=== PATIENT | male | born 1930 | race Caucasian/White ===

== ENCOUNTER 2016-12-10 06:26 | Outpatient (CLI) | payer MEDICARE ==
[~2016-12-10] VITALS: Ht 180.3 cm; Wt 78.9 kg
[~2016-12-10 06:26] MED LIST: ACHYD1T PO; ASCO500T20 PO; ASPI-875 PO; CIPR-17 PO; DOCU-161 PO; FINA5TAB6 PO; FOLI1TAB6 PO; LECI400C PO; LVT.025T PO; OMEG-12 PO; PARO20TA4 PO; PARO40TA2 PO; PERP1TAB5 PO; PHEN200T27 PO; SIMV20TA3 PO; SIMV40TA4 PO; TMSL.4C PO
== END 2016-12-10 11:48 ==
LOC: PREOP 06:26
PROVIDERS: ATTEND Surgery
DX: Z01.818 Encounter for other preprocedural examination (principal); D64.9 Anemia, unspecified

== ENCOUNTER 2016-12-14 07:49 | Day surgery (SDC) | payer MEDICARE ==
[2016-12-14 07:55] VITALS: BP 137/97
[2016-12-14] MEDS ORDERED: NS IV 1000 ML 1,000 ML IV STA (07:55)
[2016-12-14] MEDS ORDERED: HURRICAINE EXT TUBE (BENZOCAINE) XX PRN (08:00)
[2016-12-14] MEDS ORDERED: NS IV 1000 ML 1,000 ML ONE (08:19)
[2016-12-14] MEDS ORDERED: proPOfol 200 MG/20 ML (DIPRIVAN) VIAL IV ONE (08:39)
[2016-12-14] MEDS ORDERED: fentaNYL INJECTION 100 MCG/2 ML AMP ONE (08:40)
[2016-12-14] MEDS ORDERED: meTOprolol 5 MG/5 ML (LOPRESSOR) VIAL ONE (09:40)
--- NOTE | 2016-12-14 09:41 | Progress Note-Pre Operative ---
Pre-Operative Progress Note H&P Reviewed The H&P was reviewed, patient examined and no changes noted. Date H&P Reviewed: December 14, 2016 Time H&P Reviewed: 09:41 Pre-Operative Diagnosis: anemia, occult positive stool SHARAN FONSECA DO December 14, 2016 9:41 am
--- NOTE | 2016-12-14 10:41 | Discharge Inst-Simple/Standard ---
Discharge Inst-Standard Patient Instructions/Follow Up Plan of Care/Instructions/FU: Follow up with Dr. Alvarez as needed Activity as Tolerated: Yes Discharge Diet: No Restrictions AUSTIN ARAGON APRN December 14, 2016 10:41
--- NOTE | 2016-12-14 10:47 | Progress Note-Post Operative ---
Post-Operative Progess Note Surgeon (s)/Nuclear Reactor Engineer (s) Surgeon SHARAN FONSECA DO Nuclear Reactor Engineer: na Pre-Operative Diagnosis anemia, occult positive stool Post-Operative Diagnosis small hiatal hernia, normal colon Procedure & Operative Findings Date of Procedure 12/14/16 Procedure Performed/Findings egd colonoscopy Anesthesia Type per site surveyor Estimated Blood Loss Estimated blood loss (mL): none Specimens/Packing Specimens Removed none Packing: SHARAN Sher DO December 14, 2016 10:47 am
[2016-12-14 10:50] VITALS: BP 122/76
--- NOTE | 2016-12-14 11:15 | OPERATIVE REPORT ---
DATE OF SERVICE: 12/14/2016 PREOPERATIVE DIAGNOSIS: Anemia, occult positive stool. POSTOPERATIVE DIAGNOSIS: Small hiatal hernia, normal colon. PROCEDURE: EGD and colonoscopy. ANESTHESIA: Per CHIEF DIETITIAN. SURGEON: Raffaele Alvarez DO. ESTIMATED BLOOD LOSS: None. COMPLICATIONS: None. INDICATIONS: The patient is an 86-year-old male who was sent to me due to him being anemic and having occult positive stools. He understands the risks and benefits of procedures and wished to proceed with procedure. Consent was signed in chart. PROCEDURE: The patient was taken to the endoscopy suite, placed in left lateral recumbent position. Timeout was performed. Scope was inserted in mouth, down into esophagus, stomach and into the duodenum without difficulty. There were no polyps, masses or ulcerations within the duodenum. The scope was slowly retracted back into the stomach, where it was further insufflated. There were no polyps, masses or ulcerations in the antrum. Scope was retroflexed noting some small benign appearing gastric polyps. A small hiatal hernia. There is no evidence of any bleeding or inflammation. Scope was returned to its normal position, slowly withdrawn back into the distal esophagus which had normal appearance. There are no polyps, mass or ulcerations. Scope was slowly retracted back until completely removed. Digital rectal exam was performed. There were no palpable pulse, mass, or ulcerations. Scope was inserted into the rectum and advanced all way to the cecum. There are a couple extremely tight turns which were difficult to navigate; however, they were able to be passed and scope was able to be advanced all the way to cecum. Prep was adequate with irrigation and suction. The scope was then slowly retracted back. No polyps, masses or ulcerations within the cecum, ascending, transverse, descending or sigmoid colon. Once in the rectum, scope was also retroflexed noting no other pathology except for some small hemorrhoidal disease. The scope was returned to its normal position, slowly withdrawn until completely removed. The patient tolerated procedure well without any complications and was taken to the recovery room in stable condition. RECOMMENDATIONS: The patient had no evidence of any bleeding source by EGD or colonoscopy. His occult positive stools could have been secondary to the internal hemorrhoidal disease. The patient will continue to follow up with his primary care provider. If he has any problems, he should return to the clinic at that time. Otherwise, follow up on an as needed basis. Job ID: [id number] DocumentID: [id number] Dictated Date: 12/14/2016 10:53:04 Zone Supervisor Firearms Date: 12/14/2016 11:14:34 Dictated By: DO SANJUANITA TORRES
[2016-12-14 11:20] VITALS: BP 130/80
[2016-12-14 11:35] VITALS: BP 130/80
== END 2016-12-14 11:35 | disposition home or self-care (01) ==
LOC: ENDO 07:49
PROVIDERS: ATTEND Surgery
DX: R19.5 Other fecal abnormalities (principal); D64.9 Anemia, unspecified; K44.9 Diaphragmatic hernia without obstruction or gangrene; K64.8 Other hemorrhoids; I48.91 Unspecified atrial fibrillation; E78.5 Hyperlipidemia, unspecified; E03.9 Hypothyroidism, unspecified; Z79.01 Long term (current) use of anticoagulants; Z79.899 Other long term (current) drug therapy

== ENCOUNTER → 2018-11-08 | Outpatient (CLI) | payer MEDICARE ==
--- NOTE | 2018-11-08 10:57 | Diagnostic Imaging Report ---
INDICATION: Dysphasia and globus sensation. The patient ingested effervescent crystals as well as thin and thick barium and imaging of the esophagus was performed. A total of one minute and 52 seconds of fluoroscopy was utilized. The esophagus has a smooth contour. No mass or strictures identified. Occasional tertiary contractions were present. There is a very small hiatal hernia. No gastroesophageal reflux was demonstrated. IMPRESSION: Small hiatal hernia. No other significant abnormality is detected. Dictated by: Dictated on workstation # [id number]
--- NOTE | 2018-11-08 11:59 | Diagnostic Imaging Report ---
CLINICAL INDICATION: Patient with dysphagia. COMPARISONS: None. FINDINGS: THYROID NODULES: None. THYROID GLAND: There is heterogeneity involving the upper portion of the right thyroid gland. Otherwise, the thyroid gland has normal size, shape and echogenicity. The right lobe measures 3.8 cm x 1.2 cm x 1.1 cm, and the left lobe measures 3.3 cm x 1.1 cm x 1.0 cm in their three dimensions. ISTHMUS: The isthmus is unremarkable and measures 3.5 mm in thickness. IMPRESSION: Nonspecific heterogeneity of the upper right thyroid gland region. Otherwise, unremarkable thyroid ultrasound exam. Dictated by: Dictated on workstation # [id number]
== END ==
LOC: RAD 09:25
PROVIDERS: ATTEND Otolaryngology Otolaryngology/Facial Plastic Surgery
DX: K44.9 Diaphragmatic hernia without obstruction or gangrene (principal)
CPT/HCPCS: 74220; 76536

== ENCOUNTER → 2019-04-26 | Outpatient (CLI) | payer MEDICARE ==
[~2019-04-26] MED LIST changes: +CATHETER FLUSH 10 ML SYR IV PRN; +HOLD METFORMIN - RECEIVED CONTRAST 20 ML VIAL IV SCH; +IOHEXOL 350 MG/ML 100 ML (OMNIPAQUE 350) VIAL IV ONE; +NS 100 ML (IVPB) BAG IV ONE
[2019-04-26 11:00] LABS: CREATININE SERUM 1.51 MG/DL (0.60-1.30)
--- NOTE | 2019-04-26 13:59 | Diagnostic Imaging Report ---
PROCEDURE: CT chest without contrast. TECHNIQUE: Multiple contiguous axial images were obtained through the chest without the use of intravenous contrast. Auto Exposure Controls were utilized during the CT exam to meet ALARA standards for radiation dose reduction. 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 FINDINGS: There are no prior CT chest examinations available for comparison. The plain film examination of the chest performed on 02/24/2013 failed to show any sign of an acute abnormality. The heart is mildly enlarged and there are extensive coronary artery calcifications evident. 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 The aorta measures 3.9 x 4.3 cm. The descending thoracic aorta is unremarkable. The evaluation for mediastinal or hilar adenopathy is limited as intravenous contrast was not administered. However, there does not appear to be any significant hilar adenopathy that would suggest sarcoidosis. The lungs are also generally clear. There is mild pleural thickening along the posterior aspect of each lung base and there is a small amount of chronic atelectasis/scar formation in each lower lobe. There is no evidence for pneumonia, failure, or pleural effusion, however. The thyroid gland is unremarkable. The sections through the upper abdomen fail to show any sign of an acute abnormality. There does appear to be a fair amount of fecal material throughout the visualized colon. The bone windows are unremarkable for fracture or for destructive lesion. IMPRESSION: 1. There is no evidence for an acute cardiopulmonary abnormality. 2. There is coronary artery disease and cardiomegaly. There is also mild aneurysmal dilatation of the ascending aorta. 3. There is no obvious hilar adenopathy or parenchymal lung abnormality to suggest sarcoidosis. Dictated by: Dictated on workstation # [id number]
== END ==
LOC: RAD FS 10:12
PROVIDERS: ATTEND Family Medicine
DX: I25.10 Atherosclerotic heart disease of native coronary artery without angina pectoris (principal); I51.7 Cardiomegaly; I71.9 Aortic aneurysm of unspecified site, without rupture; D86.3 Sarcoidosis of skin
CPT/HCPCS: 36415; 71250; 82565; 84520

== ENCOUNTER → 2019-08-03 | Outpatient (CLI) | payer MEDICARE ==
[~2019-08-03] MED LIST changes: -CATHETER FLUSH 10 ML SYR IV PRN; -HOLD METFORMIN - RECEIVED CONTRAST 20 ML VIAL IV SCH; -IOHEXOL 350 MG/ML 100 ML (OMNIPAQUE 350) VIAL IV ONE; -NS 100 ML (IVPB) BAG IV ONE
== END ==
LOC: CARD 10:52
PROVIDERS: ATTEND Internal Medicine Cardiovascular Disease
DX: I08.3 Combined rheumatic disorders of mitral, aortic and tricuspid valves (principal); I11.9 Hypertensive heart disease without heart failure; E78.2 Mixed hyperlipidemia; I48.0 Paroxysmal atrial fibrillation; R00.2 Palpitations
CPT/HCPCS: 93306

== ENCOUNTER 2019-09-20 11:54 | Emergency (ER) | payer MEDICARE ==
[~2019-09-20] VITALS: Ht 180 cm; Wt 70.0 kg
--- NOTE | 2019-09-20 12:00 | ED Upper Extremity ---
General Chief Complaint: Laceration Stated Complaint: LT HAND LAC Source: patient History of Present Illness Date Seen by Provider: Sep 20, 2019 Time Seen by Provider: 12:00 Initial Comments 89-year-old male presenting with complaints of chainsaw injury to his left hand. He was trying to use chainsaw on a stump and lost control. He had his fingers get cut by the chainsaw. He is unsure of his last tetanus shot. He denies any numbness or tingling in his fingers. He is able to move them normally. He does take a blood thinner. Bleeding is currently controlled on arrival to the ED. Allergies and Home Medications Allergies Coded Allergies: ciprofloxacin (Verified Allergy, Intermediate, 09/20/19) DELIRIUM Penicillins (Verified Allergy, Unknown, RASH, 12/10/16) dronedarone (Verified Allergy, Unknown, 09/20/19) Home Medications Ascorbic Acid 500 Mg Tablet, 500 MG PO DAILY, (Reported) Aspirin 81 Mg Tablet.dr, 81 MG PO MON, WED, TUE, (Reported) Cephalexin 500 Mg Tablet, 500 MG PO TID Prescribed by: RICHARD MCCOLLUM on 09/20/19 1430 Docusate Sodium 100 Mg Capsule, 200 MG PO TID, (Reported) TAKES 2 (100MG) CAPSULES AFTER EACH MEAL Finasteride 5 Mg Tablet, 5 MG PO HS, (Reported) Folic Acid/Mv,Fe,Other Min 1 Each Tablet, 1 TAB PO DAILY, (Reported) Lecithin, Soy 400 Mg Capsule, 800 MG PO AFTER LUNCH & SUPPER, (Reported) TAKES 2 (400MG) CAPSULES AFTER LUNCH AND 2 AFTER SUPPER Levothyroxine Sodium 25 Mcg Tablet, 0.0125 MCG PO DAILY, (Reported) TAKES 1/2 (25MCG) TABLET DAILY [place]-3/Dha/Epa/Fish Oil 1 Each Capsule.dr, 1,000 MG PO BID, (Reported) Paroxetine Hcl 40 Mg Tablet, 20 MG PO HS, (Reported) TAKES 1/2 (40MG) TABLET Perphenazine/Amitriptyline Hcl 1 Each Tablet, 0.5 TAB PO HS, (Reported) Simvastatin 40 Mg Tablet, 20 MG PO HS, (Reported) TAKES 1/2 (40MG) TABLET Tamsulosin Hcl 0.4 Mg Cap.er.24h, 0.4 MG PO 30 MIN AFTER SUPPER, (Reported) Tramadol HCl 50 Mg Tablet, 50 MG PO Q6H PRN for PAIN-SEVERE (8-10) Prescribed by: RICHARD MCCOLLUM on 09/20/19 1430 Patient Home Medication List Home Medication List Reviewed: Yes Review of Systems Constitutional: No chills, No fever EENTM: no symptoms reported Respiratory: no symptoms reported Cardiovascular: no symptoms reported Gastrointestinal: no symptoms reported Genitourinary: no symptoms reported Musculoskeletal: see HPI Skin: see HPI Psychiatric/Neurological: Denies Numbness, Denies Paresthesia Past [id number]-[id number] Hx Past Med/Social Hx: Reviewed Nursing Past Med/Soc Hx Patient Social History Former Smoker, Quit: December 10, 1961 Recent Foreign Travel: No Contact w/Someone Who Travel: No Recent Hopitalizations: No Immunizations Up To Date Date of Pneumonia Vaccine: May 03, 2016 Date of Influenza Vaccine: May 03, 2016 Seasonal Allergies Seasonal Allergies: No Past Medical History Surgeries: Yes Appendectomy Atrial Fibrillation, High Cholesterol Reproductive Disorders: No Sexually Transmitted Disease: No HIV/AIDS: No Loss of Vision: Bilateral Hearing Impairment: Bilateral Hearing Aide Prostate Adverse Reaction/Blood Tranf: No Physical Exam Vital Signs Vital Signs - First Documented 09/20/19 11:58 Temp 36.3 Pulse 81 Resp 18 B/P (MAP) 137/63 (87) Pulse Ox 98 O2 Delivery Room Air Capillary Refill : Height, Weight, BMI Height: 5'11.00" Weight: 174lbs. 0.0oz. 78.783214xh; 24.3 BMI Method: General Appearance: WD/WN, no apparent distress HEENT: PERRL/EOMI Cardiovascular: normal peripheral pulses Hand: Left, laceration (multiple lacerations to his left hand on his fingers. He has a jagged edges and flaps mainly on the ring finger and index finger. He also has small lacerations on the pinky finger. Sensation and movement are intact. He has normal blood flow and capillary refill), soft tissue tenderness Neurologic/Tendon: normal sensation, normal motor functions, normal tendon functions Neurologic/Psychiatric: no motor/sensory deficits, alert, normal mood/affect Skin: warm/dry Procedures/Interventions Wound Location: Upper Extremities (left index finger) Wound Length (cm): 2.3 Wound's Depth, Shape: irregular, contused tissue, sub Q Wound Explored: clean Anesthesia: 1% Lidocaine (digital block) Volume Anesthetic (ccs): 5 Suture: Ethlion Suture Size: 4-0 Number of Sutures: 7 Layer Closure?: 1 Sterile Dressing Applied?: Yes Wound Location: Upper Extremities (left ring finger) Wound Length (cm): 3 Wound's Depth, Shape: irregular (shredded tissue), contused tissue, sub Q Wound Explored: clean Anesthesia: 1% Lidocaine (digital block) Volume Anesthetic (ccs): 5 Suture: Ethlion Suture Size: 4-0 Number of Sutures: 7 Layer Closure?: 1 Sterile Dressing Applied?: Yes Wound Location: Upper Extremities (left pinky finger) Wound Length (cm): 0.6 Wound's Depth, Shape: irregular, contused tissue, sub Q Wound Explored: clean Anesthesia: 1% Lidocaine (digital block) Volume Anesthetic (ccs): 5 Suture: Ethlion Suture Size: 4-0 Number of Sutures: 1 Layer Closure?: 1 Sterile Dressing Applied?: Yes After obtaining verbal informed consent from the patient he had a digital block placed in the left index, ring, and pinky fingers. Then a turnicot was applied to the index and ring fingers. He had the wounds cleaned with chlorhexidine and sterile saline. Then using 4-0 Ethilon the wound edges were approximated as best as I could accomplish with the shredded tissue that was present from the chainsaw contusions. He had 7 simple interrupted stitches placed in the index finger, 7 simple interrupted stitches placed in the ring finger, one simple interrupted stitch placed in the pinky finger. He tolerated the procedure well without any immediate complications. Counseled on follow-up and return precautions. Started on cephalexin for antibiotic prophylaxis. Sterile dressing with tube gauze and antibiotic ointment placed by RN prior to discharge Progress/Results/Core Measures Results/Orders My Orders Orders - RICHARD MCCOLLUM MD Hand 3 View Left (09/20/19 12:05) Lidocaine 1% Inj 20 Ml (Xylocaine 1% Inj (09/20/19 12:15) Suture Set At Bedside (09/20/19 12:06) Medications Given in ED Current Medications Medications Dose Ordered Sig/Jesus Manuel Route Start Time Stop Time Status Last Admin Dose Admin Lidocaine HCl 20 ml ONCE ONCE INJ 09/20/19 12:15 09/20/19 12:16 DC 09/20/19 15:21 20 ML Vital Signs/I&O 09/20/19 09/20/19 11:58 14:45 Temp 36.3 36.2 Pulse 81 61 Resp 18 18 B/P (MAP) 137/63 (87) 112/50 Pulse Ox 98 97 O2 Delivery Room Air Room Air Progress Progress Note #1: Progress Note Have him soak his fingers and chlorhexidine and sterile water. X-rays of the hand and fingers to evaluate for bony injury or foreign bodies. Progress Note #2: Progress Note No definite fractures of his fingers. He has no obvious foreign bodies seen. The areas in his middle finger for possible tuft fracture does not seem to be a definite fracture since he has no pain in this area. He was verbally consented for a digital block on his index and ring and pinky fingers. After that the wounds were cleaned with chlorhexidine and sterile saline. Then the wound edges were approximated as best as I could with his contused and shredded tissues. Counseled to have stitches removed in approximately 2 weeks. Return or be seen sooner if he has more problems. Diagnostic Imaging Diagonstic Imaging: Xray Plain Films/CT/US/NM/MRI: hand Comments NAME: NURYS DRISCOLL [facility] REC#: [id number] PT STATUS: REG ER : 1932 PHYSICIAN: RICHARD MCCOLLUM MD ADMIT DATE: 09/20/19/ER FS Signed Date of Exam:09/20/19 HAND 3 VIEW LEFT Indication: Chainsaw accident, injury to left fingers 3 views of the left hand shows some soft tissue disruption on the pad of the 4th finger. There may be a tuft fracture of the distal phalanx of the left middle finger. IMPRESSION: Soft tissue injury to the pad of the 4th finger. Possible nondisplaced fracture of the tuft of the distal phalanx of the left middle finger. Dictated by: Dictated on workstation # [id number] Dict: 09/20/19 1219 Trans: 09/20/19 1223 [id number] Interpreted by: JENNIE APPIAH MD Electronically signed by: JENNIE APPIAH MD 09/20/19 1223 Departure Impression Primary Impression: Laceration of left index finger without foreign body without damage to nail Qualified Codes: S61.211A - Laceration without foreign body of left index finger without damage to nail, initial encounter Additional Impressions: Laceration of left ring finger without foreign body with damage to nail Qualified Codes: S61.315A - Laceration without foreign body of left ring finger with damage to nail, initial encounter Laceration of left little finger without foreign body without damage to nail Qualified Codes: S61.217A - Laceration without foreign body of left little finger without damage to nail, initial encounter Contact with chainsaw as cause of accidental injury Disposition: HOME, SELF-CARE Condition: Stable Departure-Patient Inst. Decision time for Depature: 14:22 Referrals: THOMAS SHERMAN MD (PCP/Family) Primary Care Physician Patient Instructions: Common Finger Injuries (DC), Crush Injury (DC), Laceration Repair With Stitches (DC) Add. Discharge Instructions: Keep dressing clean, dry and covered for first 24 hours then may remove dressing and wash with soap and water but do not soak the hand or wounds. Apply antibiotic ointment 2-3 times a day as needed and keep wounds covered if you are going to be doing anything where your hands may get dirty The stitches may be removed in about 14 days or be seen sooner if having concerns for infection such as redness streaking up your hand and arm or pus draining from the wounds or fever over 101 F All discharge instructions reviewed with patient and/or family. Voiced understanding. Scripts Tramadol HCl (Tramadol HCl) 50 Mg Tablet 50 MG PO Q6H PRN for PAIN-SEVERE (8-10) for 3 Days, #12 TAB 0 Refills Prov: RICHARD MCCOLLUM MD 09/20/19 Cephalexin (Cephalexin) 500 Mg Tablet 500 MG PO TID for finger lacerations for 7 Days, #20 TAB 0 Refills Prov: RICHARD MCCOLLUM MD 09/20/19 Copy Copies To 1: THOMAS SHERMAN MD, MARC E MD Sep 20, 2019 12:00
[2019-09-20] MEDS ORDERED: LIDOCAINE 1% INJ 20 ML 20 ML VIAL INJ ONE (12:15)
--- NOTE | 2019-09-20 12:25 | Diagnostic Imaging Report ---
Indication: Chainsaw accident, injury to left fingers 3 views of the left hand shows some soft tissue disruption on the pad of the 4th finger. There may be a tuft fracture of the distal phalanx of the left middle finger. IMPRESSION: Soft tissue injury to the pad of the 4th finger. Possible nondisplaced fracture of the tuft of the distal phalanx of the left middle finger. Dictated by: Dictated on workstation # [id number]
[2019-09-20] MEDS ORDERED: TRM50T PO (14:30)
[2019-09-20] MEDS ORDERED: CEPH500T PO (14:30)
[2019-09-20 14:45] VITALS: BP 112/50
== END 2019-09-20 14:45 | disposition home or self-care (01) ==
LOC: EDUNIT# 11:54 → ER FS 11:55
DX: S61.211A Laceration without foreign body of left index finger without damage to nail, initial encounter (principal); S61.315A Laceration without foreign body of left ring finger with damage to nail, initial encounter; S61.217A Laceration without foreign body of left little finger without damage to nail, initial encounter; I48.91 Unspecified atrial fibrillation; E78.00 Pure hypercholesterolemia, unspecified; Z88.1 Allergy status to other antibiotic agents; Z88.0 Allergy status to penicillin; Z88.8 Allergy status to other drugs, medicaments and biological substances; Z79.82 Long term (current) use of aspirin; W29.3XXA Contact with powered garden and outdoor hand tools and machinery, initial encounter
CPT/HCPCS: 13152; 73130

== ENCOUNTER 2019-10-04 09:29 | Emergency (ER) | payer MEDICARE ==
[~2019-10-04] VITALS: Ht 177 cm; Wt 80.0 kg
[~2019-10-04 09:29] MED LIST changes: +CEPH500T PO; +TRM50T PO
[2019-10-04 09:54] VITALS: BP 138/62
[2019-10-04] MEDS ORDERED: BACI28.35 TP (09:56)
[2019-10-04] MEDS ORDERED: CEPH500T PO (09:56)
--- NOTE | 2019-10-04 09:56 | ED Suture Removal/Wound Check ---
Suture/Wound Re-check General Appearance: WD/WN, no apparent distress Skin Exam: other (sutures distal finger tips L hand 3-4th. Healing w wound margin approx. 3rd w moderate distal phalynx erythema and edema. NO wound dehiscense. Moderate maceration of tissue. ) Physical Exam Vital Signs Vital Signs - First Documented 10/04/19 09:35 Temp 36.2 Pulse 82 Resp 18 B/P (MAP) 138/62 Pulse Ox 99 O2 Delivery Room Air Capillary Refill : General Appearance: WD/WN, no apparent distress Neurologic/Psychiatric: alert, oriented x 3; No motor weakness Skin: other (see "Re-echeck") Departure Impression Primary Impression: Encounter for evaluation of wound Additional Impressions: Encounter for removal of sutures Cellulitis of finger Qualified Codes: L03.012 - Cellulitis of left finger Disposition: HOME, SELF-CARE Condition: Stable Departure-Patient Inst. Referrals: THOMAS SHERMAN MD (PCP/Family) Primary Care Physician Patient Instructions: SUTURE REMOVAL - UNCOMPLICATED, Cellulitis and Erysipelas (Skin Infections) Scripts Bacitracin/Polymyxin B Sulfate (Polysporin Ointment) 28.3 Gm Oint...g. 28.3 GM TP DAILY, #30 TUBE Prov: HARLEY PERES DO 10/04/19 Cephalexin (Cephalexin) 500 Mg Tablet 500 MG PO TID, #15 TAB 0 Refills Prov: HARLEY PERES DO 10/04/19 HARLEY PERES DO Oct 04, 2019 09:56
== END 2019-10-04 10:06 | disposition home or self-care (01) ==
LOC: EDUNIT# 09:29 → ER FS 09:31
DX: S61.203D Unspecified open wound of left middle finger without damage to nail, subsequent encounter (principal); S61.205D Unspecified open wound of left ring finger without damage to nail, subsequent encounter; L03.012 Cellulitis of left finger; X58.XXXD Exposure to other specified factors, subsequent encounter

== ENCOUNTER → 2020-04-30 | Outpatient (CLI) | payer MEDICARE ==
[~2020-04-30] MED LIST changes: +BACI28.35 TP
[2020-04-30 11:09] LABS: HEMOGLOBIN 12.1 G/DL (13.3-17.7); MEAN CORPUSCULAR HEMOGLOBIN 32 PG (25-34); WHITE BLOOD COUNT 7.5 10^3/uL (4.3-11.0)
[2020-04-30 11:10] LABS: BASOPHILS % (AUTO) 0 % (0-10); EOSINOPHILS # (AUTO) 0.2 10^3/uL (0.0-0.3); EOSINOPHILS % (AUTO) 2 % (0-10); HEMATOCRIT 36 % (40-54); LYMPHOCYTES # (AUTO) 1.9 X 10^3 (1.0-4.0); LYMPHOCYTES % (AUTO) 25 % (12-44); MEAN CORPUSCULAR HGB CONC 34 G/DL (32-36); MEAN CORPUSCULAR VOLUME 95 FL (80-99); MEAN PLATELET VOLUME 12.8 FL (7.4-10.4); MONOCYTES # (AUTO) 0.7 X 10^3 (0.0-1.0); MONOCYTES % (AUTO) 9 % (0-12); NEUTROPHILS # (AUTO) 4.7 X 10^3 (1.8-7.8); NEUTROPHILS % (AUTO) 63 % (42-75); PLATELET COUNT 171 10^3/uL (130-400)
[2020-04-30 11:11] LABS: ALBUMIN 4.2 GM/DL (3.2-4.5); BILIRUBIN,TOTAL 0.3 MG/DL (0.1-1.0); CALCIUM 9.2 MG/DL (8.5-10.1); CREATININE SERUM 1.45 MG/DL (0.60-1.30); POTASSIUM 4.3 MMOL/L (3.6-5.0); TOTAL PROTEIN 6.8 GM/DL (6.4-8.2)
== END ==
LOC: LAB FS 09:59
PROVIDERS: ATTEND Family Medicine
DX: R53.83 Other fatigue (principal); R55 Syncope and collapse
CPT/HCPCS: 36415; 80053; 84443; 85025

== ENCOUNTER → 2020-05-21 | Outpatient (CLI) | payer MEDICARE ==
--- NOTE | 2020-05-21 11:15 | Diagnostic Imaging Report ---
PROCEDURE: CT head without contrast. TECHNIQUE: Multiple contiguous axial images were obtained through the brain without the use of intravenous contrast. Auto Exposure Controls were utilized during the CT exam to meet ALARA standards for radiation dose reduction. INDICATION: Presyncopal, dizziness. FINDINGS: The ventricles are normal in size, shape and position. There are no masses or hemorrhages. There are no extra-axial fluid collections. IMPRESSION: Negative CT head. Dictated by: Dictated on workstation # [id number]
== END ==
LOC: RAD FS 09:26
PROVIDERS: ATTEND Family Medicine
DX: R42 Dizziness and giddiness (principal); R55 Syncope and collapse
CPT/HCPCS: 70450

== ENCOUNTER → 2020-08-12 | Outpatient (CLI) | payer MEDICARE ==
[2020-08-12 11:44] LABS: CREATININE SERUM 1.51 MG/DL (0.60-1.30); POTASSIUM 4.1 MMOL/L (3.6-5.0)
[2020-08-12 11:45] LABS: ALBUMIN 4.2 GM/DL (3.2-4.5); BILIRUBIN,TOTAL 0.4 MG/DL (0.1-1.0); CALCIUM 9.6 MG/DL (8.5-10.1); TOTAL PROTEIN 7.1 GM/DL (6.4-8.2)
== END ==
LOC: LAB FS 08:58
PROVIDERS: ATTEND Family Medicine
DX: I10 Essential (primary) hypertension (principal)
CPT/HCPCS: 36415; 80053; 80061

== ENCOUNTER → 2021-02-11 | Outpatient (CLI) | payer MEDICARE ==
[2021-02-11 11:06] LABS: CREATININE SERUM 1.46 MG/DL (0.60-1.30); POTASSIUM 3.9 MMOL/L (3.6-5.0)
[2021-02-11 11:07] LABS: ALBUMIN 4.4 GM/DL (3.2-4.5); BILIRUBIN,TOTAL 0.4 MG/DL (0.1-1.0); CALCIUM 9.8 MG/DL (8.5-10.1); TOTAL PROTEIN 7.2 GM/DL (6.4-8.2)
== END ==
LOC: LAB FS 09:57
PROVIDERS: ATTEND Family Medicine
DX: N18.30 Chronic kidney disease, stage 3 unspecified (principal); E03.9 Hypothyroidism, unspecified; R41.3 Other amnesia
CPT/HCPCS: 36415; 80053; 82607; 84443

== ENCOUNTER → 2021-08-24 | Outpatient (CLI) | payer MEDICARE ==
[2021-08-24 09:26] LABS: HEMATOCRIT 39 % (40-54); HEMOGLOBIN 13.1 g/dL (13.3-17.7); MEAN CORPUSCULAR HEMOGLOBIN 32 pg (25-34); MEAN CORPUSCULAR HGB CONC 34 g/dL (32-36); MEAN CORPUSCULAR VOLUME 95 fL (80-99); MEAN PLATELET VOLUME 12.3 fL (9.0-12.2); PLATELET COUNT 174 10^3/uL (130-400); WHITE BLOOD COUNT 8.4 10^3/uL (4.3-11.0)
[2021-08-24 09:27] LABS: BASOPHILS # (AUTO) 0.1 10^3/uL (0.0-0.1); BASOPHILS % (AUTO) 1 % (0-10); EOSINOPHILS # (AUTO) 0.2 10^3/uL (0.0-0.3); EOSINOPHILS % (AUTO) 3 % (0-10); LYMPHOCYTES # (AUTO) 2.8 X 10^3 (1.0-4.0); LYMPHOCYTES % (AUTO) 33 % (12-44); MONOCYTES # (AUTO) 0.7 X 10^3 (0.0-1.0); MONOCYTES % (AUTO) 9 % (0-12); NEUTROPHILS # (AUTO) 4.6 X 10^3 (1.8-7.8); NEUTROPHILS % (AUTO) 54 % (42-75)
[2021-08-24 10:10] LABS: POTASSIUM 3.9 MMOL/L (3.6-5.0); SODIUM 140 MMOL/L (135-145)
[2021-08-24 10:11] LABS: ALANINE AMINOTRANSFERASE 13 U/L (0-55); ALBUMIN 4.6 GM/DL (3.2-4.5); ALKALINE PHOSPHATASE 58 U/L (40-136); BILIRUBIN,TOTAL 0.6 MG/DL (0.1-1.0); BUN/CREATININE RATIO 16; CALCIUM 9.8 MG/DL (8.5-10.1); CARBON DIOXIDE 24 MMOL/L (21-32); CHLORIDE 103 MMOL/L (98-107); CREATININE SERUM 1.52 MG/DL (0.60-1.30); GFR ESTIMATED 44; GLUCOSE 108 MG/DL (70-105); TOTAL PROTEIN 7.4 GM/DL (6.4-8.2)
== END ==
LOC: LAB FS 08:53
PROVIDERS: ATTEND Family Medicine
DX: E03.9 Hypothyroidism, unspecified (principal); I95.1 Orthostatic hypotension; E86.0 Dehydration
CPT/HCPCS: 36415; 80053; 84443; 85025

== ENCOUNTER → 2022-02-18 | Outpatient (CLI) | payer MEDICARE ==
[2022-02-18 12:46] LABS: BILIRUBIN,TOTAL 0.5 MG/DL (0.1-1.0); CALCIUM 9.9 MG/DL (8.5-10.1); CREATININE SERUM 1.6 MG/DL (0.60-1.30); POTASSIUM 4.2 MMOL/L (3.6-5.0)
[2022-02-18 12:47] LABS: ALBUMIN 4.4 GM/DL (3.2-4.5); TOTAL PROTEIN 7.3 GM/DL (6.4-8.2)
== END ==
LOC: LAB FS 09:20
PROVIDERS: ATTEND Family Medicine
DX: Z00.00 Encounter for general adult medical examination without abnormal findings (principal); E03.9 Hypothyroidism, unspecified; E78.2 Mixed hyperlipidemia; I10 Essential (primary) hypertension
CPT/HCPCS: 36415; 80053; 80061; 84443